=== PATIENT | male | born 1980 | race Hispanic/Latino ===

== ENCOUNTER 2019-07-28 16:45 | Emergency (ER) | payer OTHER ==
[~2019-07-28] VITALS: Ht 172.7 cm; Wt 75.0 kg
[2019-07-28] MEDS ORDERED: DAYT1CAP9 PO (16:53)
[2019-07-28 17:36] LABS: INFLUENZA A AMPLIFICATION NEGATIVE (NEGATIVE); INFLUENZA B AMPLIFICATION POSITIVE (NEGATIVE)
[2019-07-28 18:11] VITALS: BP 125/72
[2019-07-28] MEDS ORDERED: OSELTAMIVIR PHOSPHATE 75 MG CAP (TAMIFLU) PO ONE (18:15)
[2019-07-28] MEDS ORDERED: ONDA4TAB6 PO (18:30)
[2019-07-28] MEDS ORDERED: OSEL75CA PO (18:30)
== END 2019-07-28 18:37 | disposition home or self-care (01) ==
LOC: M ED 16:45
DX: J10.1 Influenza due to other identified influenza virus with other respiratory manifestations (principal); F17.210 Nicotine dependence, cigarettes, uncomplicated

== ENCOUNTER 2020-10-15 12:51 | Day surgery (SDC) | payer OTHER ==
[~2020-10-15] VITALS: Ht 172.7 cm; Wt 70.3 kg
[~2020-10-15 12:51] MED LIST: DAYT1CAP9 PO; LIDOCAINE 2% 100MG/5ML SDV (FOR ANES.) As Ordered ONE; MELA3TAB30 PO; NS 1,000 ML IV ONE; ONDA4TAB6 PO; OSEL75CA PO; PANT40TA29 PO; propofoL 200 MG/20 ML VIAL As Ordered ONE
--- NOTE | 2020-10-15 14:41 | ROOR ---
Patient Name: Ever Guy Procedure Date: 10/15/2020 1:49 PM Date of : 1980 Age: 40 Room: [facility] Gender: Male Note Status: Finalized Procedure: Upper GI endoscopy Indications: Epigastric abdominal pain, Heartburn Providers: Chase Melgar MD Referring MD: CARLOS DE LUNA MD Requesting Provider: Medicines: Monitored Anesthesia Care Complications: No immediate complications. Procedure: Pre-Anesthesia Assessment: - Prior to the procedure, a History and Physical was performed, and patient medications and allergies were reviewed. The patient is competent. The risks and benefits of the procedure and the sedation options and risks were discussed with the patient. All questions were answered and informed consent was obtained. Patient identification and proposed procedure were verified by the physician, the nurse and the anesthesiologist in the procedure room. Mental Status Examination: alert and oriented. Airway Examination: normal oropharyngeal airway and neck mobility. Respiratory Examination: clear to auscultation. CV Examination: normal. Prophylactic Antibiotics: The patient does not require prophylactic antibiotics. Prior Anticoagulants: The patient has taken no previous anticoagulant or antiplatelet agents. ASA Grade Assessment: II - A patient with mild systemic disease. After reviewing the risks and benefits, the patient was deemed in satisfactory condition to undergo the procedure. The anesthesia plan was to use monitored anesthesia care (MAC). Immediately prior to administration of medications, the patient was re-assessed for adequacy to receive sedatives. The heart rate, respiratory rate, oxygen saturations, blood pressure, adequacy of pulmonary ventilation, and response to care were monitored throughout the procedure. The physical status of the patient was re-assessed after the procedure. The Endoscope was introduced through the mouth, and advanced to the second part of duodenum. The upper GI endoscopy was accomplished without difficulty. The patient tolerated the procedure well. Findings: The examined esophagus was normal. The Z-line was regular and was found 40 cm from the incisors. A deformity was found at the pylorus. Biopsies were taken with a cold forceps for histology. Biopsies were taken with a cold forceps for Helicobacter pylori testing. Verification of patient identification for the specimen was done by the physician and nurse using the patient's name, date and medical record number. Estimated blood loss was minimal. A healed ulcer was found at the pylorus. The scar tissue was healthy in appearance. Scattered mild inflammation characterized by erythema, friability and granularity was found in the gastric antrum. The duodenal bulb and second portion of the duodenum were normal. Biopsies for histology were taken with a cold forceps for evaluation of celiac disease. Impression: - Normal esophagus. - Z-line regular, 40 cm from the incisors. - Acquired deformity in the pylorus. Biopsied. - Scar in the pylorus. - Gastritis. - Normal duodenal bulb and second portion of the duodenum. Biopsied. Recommendation: - Patient has a contact number available for emergencies. The signs and symptoms of potential delayed complications were discussed with the patient. Return to normal activities tomorrow. Written discharge instructions were provided to the patient. - High fiber diet. - Continue present medications. - Await pathology results. - Use Protonix (pantoprazole) 40 mg PO twice daily - to be taken in morning (1/2 hour before breakfast) and at bedtime ( atleast 3 hours after last meal) for 8 weeks. - Use sucralfate suspension 1 gram PO QID for 4 weeks. - Follow an antireflux regimen. - Repeat upper endoscopy in 3 months depending on the symptoms and clinical response. - Return to GI clinic in [facility] (address [address], [place], [address]) in 4 -- 6 weeks. Please call GI clinic @ [phone] for apppointment date and time. - Return to primary care physician. Procedure Code(s): --- Professional --- 26893, Esophagogastroduodenoscopy, flexible, transoral; with biopsy, single or multiple Diagnosis Code(s): --- Professional --- K31.89, Other diseases of stomach and duodenum K29.70, Gastritis, unspecified, without bleeding R10.13, Epigastric pain R12, Heartburn CPT copyright 2019 [employer]. All rights reserved. The codes documented in this report are preliminary and upon justice professor review may be revised to meet current compliance requirements. Chase Melgar MD Chase Melgar MD 10/15/2020 2:41:46 PM Electronically signed by Chase Melgar MD Number of Addenda: 0 Note Initiated On: 10/15/2020 1:49 PM Estimated Blood Loss: Estimated blood loss was minimal.
[2020-10-15 14:45] VITALS: BP 108/84
== END 2020-10-15 14:49 | disposition home or self-care (01) ==
LOC: M OPP 12:51
PROVIDERS: ATTEND Internal Medicine Gastroenterology
DX: K31.89 Other diseases of stomach and duodenum (principal); K29.70 Gastritis, unspecified, without bleeding; R12 Heartburn; K21.9 Gastro-esophageal reflux disease without esophagitis; F17.210 Nicotine dependence, cigarettes, uncomplicated; Z80.0 Family history of malignant neoplasm of digestive organs

== ENCOUNTER → 2020-10-22 | Outpatient (CLI) | payer SELFPAY ==
[~2020-10-22] MED LIST changes: -LIDOCAINE 2% 100MG/5ML SDV (FOR ANES.) As Ordered ONE; -NS 1,000 ML IV ONE; -propofoL 200 MG/20 ML VIAL As Ordered ONE
== END ==
LOC: M LABSMTC 14:15
PROVIDERS: ATTEND Pediatrics
DX: Z20.828 Contact with and (suspected) exposure to other viral communicable diseases (principal)

== ENCOUNTER 2021-01-28 15:22 | Emergency (ER) | payer OTHER, SELFPAY ==
[~2021-01-28] VITALS: Ht 172.7 cm; Wt 80.2 kg
[2021-01-28] MEDS ORDERED: ISOVUE-370 76% 100ML VIAL As Ordered ONE (15:45)
--- NOTE | 2021-01-28 15:48 | REP ---
INDICATION: CVA - Nursing interventions must not delay CT COMPARISON: None. TECHNIQUE: Axial noncontrast images from the skull base to the vertex with coronal reformations. This CT examination was performed using the following dose reduction techniques: Automated exposure control, adjustment of mA and/or kv according to the patient's size, and use of iterative reconstruction technique. FINDINGS: The ventricles, sulci, and cisterns are normal in position and appearance. Brunson-white differentiation is maintained. No acute intracranial hemorrhage, mass/mass effect, pathology or trauma/injury. No evidence for acute infarction. No extra-axial fluid collection. Calvarium is intact. Paranasal sinuses and mastoid air cells are clear. IMPRESSION: No evidence for acute intracranial pathology or trauma/injury. <Electronically signed by Ankit Mora > 01/28/21 [id number]
[2021-01-28 15:50] LABS: BASO % 0.4 % (0.0-1.0); EOS # 0.1 10^3/uL (0.0-0.5); EOS % 1.1 % (0.0-3.0); HEMOGLOBIN 14.5 g/dl (13.5-17.5); LYMPH # 2.4 10^3/uL (1.5-5.0); LYMPH % 26.2 % (24.0-44.0); MEAN CORPUSCULAR HEMOGLOBIN 31.3 pg (27.0-33.0); MEAN CORPUSCULAR HGB CONC 33.7 g/dl (32.0-36.5); MEAN CORPUSCULAR VOLUME 92.7 fl (80.0-96.0); MONO # 0.7 10^3/uL (0.0-0.8); MONO % 7.3 % (2.0-8.0); NEUTROPHILS # 5.8 10^3/uL (1.5-8.5); NEUTROPHILS % 64.6 % (36.0-66.0); PLATELET COUNT, AUTOMATED 300 10^3/uL (150-450); RED BLOOD COUNT 4.64 10^6/uL (4.30-6.10)
--- NOTE | 2021-01-28 15:53 | REP ---
INDICATION: CVA. COMPARISON: None. TECHNIQUE: Portable FINDINGS: The technique utilized in obtaining the radiograph has magnified the cardiac silhouette and accentuated the interstitial markings. The superior mediastinal structures are midline. The cardiac silhouette is unremarkable in size, shape, and position. The diaphragmatic surfaces of the lungs are regular, and the costophrenic angles are clear. The pulmonary acosta are clear. The imaged osseous structures are intact. IMPRESSION: There is no acute cardiopulmonary disease. <Electronically signed by Adolfo Lora > 01/28/21 [id number]
[2021-01-28 16:00] LABS: INR 0.92; PROTHROMBIN TIME 12.5 SECONDS (12.5-14.3)
[2021-01-28 16:01] LABS: PARTIAL THROMBOPLASTIN TIME 53.5 SECONDS (24.2-38.5)
--- NOTE | 2021-01-28 16:21 | REP ---
INDICATION: CVA - Nursing interventions must not delay CT. COMPARISON: Comparison is made with today's head CT study.. TECHNIQUE: CT contrast dose: 100 ml of intravenous Isovue 370. CT technique: Helical scanning is acquired. 2 mm axial images are reformatted. Maximal intensity projection and multiplanar re-formation images are generated along with 3-D surface rendered color imaging which is viewed rotational. FINDINGS: There is good opacification of the arterial tree. The distal vertebral arteries are patent bilaterally and codominant. Basilar artery is widely patent. Posterior cerebral and superior cerebellar arteries are intact. The distal internal carotid arteries are unremarkable and symmetric. Anterior middle cerebral arteries are intact. No vessel cutoff, cazares aneurysm, or arteriovenous malformation is seen. Dural sinuses and internal cerebral veins are intact and unremarkable. No evidence of thrombosis. IMPRESSION: Unremarkable CT angiography of the brain. <Electronically signed by Yvan Mayer > 01/28/21 [id number]
--- NOTE | 2021-01-28 16:23 | REP ---
INDICATION: CVA - Nursing interventions must not delay CT COMPARISON: None. TECHNIQUE: Contrast enhancement dose is 100 mL of intravenous Isovue 370. Helical scanning is acquired. 2 mm axial images are re-formatted. Coronal and sagittal MPR images are generated. Coronal and sagittal MIP and oblique MPR images are generated. 3D surface rendered images are generated and viewed rotationally. FINDINGS: There is good opacification of the arterial tree. The visualized aortic arch is unremarkable. Great vessel origins are normal. Vertebral arteries are widely patent bilaterally, right very slightly smaller than left. The common carotid arteries are unremarkable and symmetric. The bifurcations of the carotid arteries are clear bilaterally. There is no evidence of atherosclerotic plaquing. The cervical segments of the internal carotid arteries are normal and symmetric. No evidence to suggest dissection or other arteriopathy. Scattered normal size cervical lymph nodes. Maximum intensity projection, MPR, and color rendered 3D images show no additional abnormality. IMPRESSION: Unremarkable CT angiography of the neck. <Electronically signed by Yvan Mayer > 01/28/21 [id number]
[2021-01-28 16:35] LABS: BLOOD UREA NITROGEN 16 MG/DL (7-18); CALCIUM LEVEL 9.1 MG/DL (8.5-10.1); CARBON DIOXIDE LEVEL 28 MEQ/L (21-32); CHLORIDE LEVEL 107 MEQ/L (98-107); CK-MB VALUE MASS 1.4 NG/ML (<3.6); CPK CREATINE PHOSPHOKINASE 291 U/L (39-308); CREATININE FOR GFR 1.23 MG/DL (0.70-1.30); GLOMERULAR FILTRATION RATE > 60.0 (>60); GLUCOSE, FASTING 88 MG/DL (70-100); MB/CK RELATIVE INDEX 0.48 (< OR =4); POTASSIUM SERUM 4.2 MEQ/L (3.5-5.1); SODIUM LEVEL 139 MEQ/L (136-145); TROPONIN I 0.07 NG/ML (< 0.10)
[2021-01-28] MEDS ORDERED: ASPIRIN 325 MG TAB PO ONE (16:40)
[2021-01-28 17:44] LABS: RSV AMPLIFICATION NEGATIVE (NEGATIVE)
[2021-01-28 17:46] VITALS: BP 128/88
--- NOTE | 2021-01-29 16:44 | ECGEPIP ---
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
== END 2021-01-28 17:48 | disposition short-term general hospital (02) ==
LOC: M ED 15:22
DX: R20.2 Paresthesia of skin (principal); H53.121 Transient visual loss, right eye; K21.9 Gastro-esophageal reflux disease without esophagitis; F17.200 Nicotine dependence, unspecified, uncomplicated
CPT/HCPCS: 36415; 70450; 70496; 70498; 71045; 80047; 80048; 82550; 82553; 84484; 85025; 85610; 85730; 87631; 93005; 93041; 94760; 99285; Q9967

== ENCOUNTER → 2021-02-18 | Outpatient (REF) ==
[~2021-02-18] MED LIST changes: +ELIQ5TAB PO; +LIPI80TA PO; +WARF-21 PO
[2021-02-18 11:35] LABS: INR 3.31; PROTHROMBIN TIME 34.4 SECONDS (12.5-14.3)
== END ==
LOC: M LAB REF 10:34
DX: Z79.01 Long term (current) use of anticoagulants (principal)

== ENCOUNTER → 2021-02-19 | Outpatient (REF) ==
[2021-02-19 12:28] LABS: INR 2.65; PROTHROMBIN TIME 28.6 SECONDS (12.7-14.5)
== END ==
LOC: M LAB REF 11:58
DX: Z79.01 Long term (current) use of anticoagulants (principal)

== ENCOUNTER → 2021-02-19 | Outpatient (CLI) | payer OTHER ==
[2021-02-19 15:08] LABS: CK-MB VALUE MASS < 1.0 NG/ML (<3.6); CPK CREATINE PHOSPHOKINASE 144 U/L (39-308); MB/CK RELATIVE INDEX 0.69 (< OR =4)
== END ==
LOC: M LAB 12:29
PROVIDERS: ATTEND Student in an Organized Health Care Education/Training Program
DX: G72.0 Drug-induced myopathy (principal)

== ENCOUNTER 2021-03-19 13:47 | Emergency (ER) | payer OTHER ==
[~2021-03-19] VITALS: Ht 172.7 cm; Wt 75.0 kg
--- NOTE | 2021-03-19 14:19 | REP ---
INDICATION: CHEST PAIN COMPARISON: 01/28/2021 TECHNIQUE: Portable AP view of the chest FINDINGS: The mediastinum and cardiac silhouette are stable and within normal limits for portable technique. The lung acosta are clear without acute consolidation, effusion, or pneumothorax. Skeletal structures are intact. IMPRESSION: No acute cardiopulmonary process appreciated. <Electronically signed by Ankit Mora > 03/19/21 [id number]
[2021-03-19 14:21] LABS: BASO % 0.4 % (0.0-1.0); EOS # 0.1 10^3/uL (0.0-0.5); EOS % 1.2 % (0.0-3.0); HEMATOCRIT 42.8 % (42.0-52.0); HEMOGLOBIN 14.7 g/dl (13.5-17.5); LYMPH # 1.9 10^3/uL (1.5-5.0); LYMPH % 27.6 % (24.0-44.0); MEAN CORPUSCULAR HEMOGLOBIN 30.9 pg (27.0-33.0); MEAN CORPUSCULAR HGB CONC 34.3 g/dl (32.0-36.5); MEAN CORPUSCULAR VOLUME 89.9 fl (80.0-96.0); MONO # 0.5 10^3/uL (0.0-0.8); MONO % 7.4 % (2.0-8.0); NEUTROPHILS # 4.3 10^3/uL (1.5-8.5); NEUTROPHILS % 63.1 % (36.0-66.0); PLATELET COUNT, AUTOMATED 279 10^3/uL (150-450); RED BLOOD COUNT 4.76 10^6/uL (4.30-6.10); WHITE BLOOD COUNT 6.8 10^3/uL (4.0-10.0)
[2021-03-19 14:55] LABS: ALBUMIN 3.7 GM/DL (3.2-5.2); ALT/SGPT 50 U/L (12-78); BILIRUBIN,DIRECT < 0.1 MG/DL (0.0-0.2); BILIRUBIN,TOTAL 0.2 MG/DL (0.2-1.0); BLOOD UREA NITROGEN 16 MG/DL (7-18); CARBON DIOXIDE LEVEL 24 MEQ/L (21-32); CHLORIDE LEVEL 110 MEQ/L (98-107); CK-MB VALUE MASS < 1.0 NG/ML (<3.6); CPK CREATINE PHOSPHOKINASE 127 U/L (39-308); CREATININE FOR GFR 1.17 MG/DL (0.70-1.30); FREE T4 0.95 NG/DL (0.76-1.46); GLOMERULAR FILTRATION RATE > 60.0 (>60); GLUCOSE, FASTING 140 MG/DL (70-100); MB/CK RELATIVE INDEX 0.79 (< OR =4); POTASSIUM SERUM 3.8 MEQ/L (3.5-5.1); SODIUM LEVEL 140 MEQ/L (136-145); TOTAL PROTEIN 7.1 GM/DL (6.4-8.2); TROPONIN I < 0.02 NG/ML (< 0.10)
[2021-03-19 16:27] LABS: NT-PRO BNP 8 PG/ML (<125)
[2021-03-19] MEDS ORDERED: holter monitor (19:03)
[2021-03-19 19:23] LABS: INR 1.73; PROTHROMBIN TIME 20.6 SECONDS (12.7-14.5)
[2021-03-19 19:26] LABS: CK-MB VALUE MASS < 1.0 NG/ML (<3.6); CPK CREATINE PHOSPHOKINASE 118 U/L (39-308); MB/CK RELATIVE INDEX 0.85 (< OR =4); TROPONIN I < 0.02 NG/ML (< 0.10)
[2021-03-19 19:41] VITALS: BP 138/93
--- NOTE | 2021-03-19 21:24 | ECGEPIP ---
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
== END 2021-03-19 19:48 | disposition home or self-care (01) ==
LOC: EDBD 13:47 → M ED 13:47
DX: R00.2 Palpitations (principal); F17.200 Nicotine dependence, unspecified, uncomplicated; Z79.899 Other long term (current) drug therapy

== ENCOUNTER → 2021-10-20 | Outpatient (REF) ==
[~2021-10-20] MED LIST changes: +ZOLO50TA PO; +holter monitor
== END ==
LOC: M PLAIMG 10:52
PROVIDERS: ATTEND Internal Medicine
DX: R06.02 Shortness of breath (principal); Z95.818 Presence of other cardiac implants and grafts

== ENCOUNTER → 2021-12-31 | Outpatient (CLI) | payer OTHER ==
[2021-12-31 10:48] LABS: BASO % 0.5 % (0.0-1.0); EOS # 0.1 10^3/uL (0.0-0.5); EOS % 1.1 % (0.0-3.0); HEMATOCRIT 45.3 % (42.0-52.0); HEMOGLOBIN 15.2 g/dl (13.5-17.5); LYMPH # 1.9 10^3/uL (1.5-5.0); LYMPH % 31.2 % (24.0-44.0); MEAN CORPUSCULAR HEMOGLOBIN 30.5 pg (27.0-33.0); MEAN CORPUSCULAR HGB CONC 33.6 g/dl (32.0-36.5); MEAN CORPUSCULAR VOLUME 90.8 fl (80.0-96.0); MONO # 0.4 10^3/uL (0.0-0.8); MONO % 6.4 % (2.0-8.0); NEUTROPHILS # 3.8 10^3/uL (1.5-8.5); NEUTROPHILS % 60.5 % (36.0-66.0); PLATELET COUNT, AUTOMATED 295 10^3/uL (150-450); RED BLOOD COUNT 4.99 10^6/uL (4.30-6.10); WHITE BLOOD COUNT 6.2 10^3/uL (4.0-10.0)
[2021-12-31 11:09] LABS: ERYTHROCYTE SEDIMENTATION RATE 5 mm/hr (0-15)
[2021-12-31 15:42] LABS: ALBUMIN 4.3 GM/DL (3.2-5.2); ALT/SGPT 73 U/L (12-78); BILIRUBIN,TOTAL 0.4 MG/DL (0.2-1.0); BLOOD UREA NITROGEN 11 MG/DL (7-18); CARBON DIOXIDE LEVEL 29 MEQ/L (21-32); CHLORIDE LEVEL 107 MEQ/L (98-107); CREATININE FOR GFR 1.28 MG/DL (0.70-1.30); FOLATE 8.2 NG/ML; FREE T4 1.05 NG/DL (0.76-1.46); GLOMERULAR FILTRATION RATE > 60.0 (>60); GLUCOSE, FASTING 82 MG/DL (70-100); POTASSIUM SERUM 4.1 MEQ/L (3.5-5.1); RHEUMATOID FACTOR QUANT < 10.0 IU/ML (<15.0); SODIUM LEVEL 138 MEQ/L (136-145); TOTAL PROTEIN 8.4 GM/DL (6.4-8.2); VITAMIN B12 LEVEL 561 PG/ML
== END ==
LOC: M LAB 10:14
PROVIDERS: ATTEND Psychiatry & Neurology Neurology
DX: I63.9 Cerebral infarction, unspecified (principal); E07.9 Disorder of thyroid, unspecified; E53.9 Vitamin B deficiency, unspecified

== ENCOUNTER → 2021-12-31 | Outpatient (CLI) | payer OTHER ==
[2021-12-31 10:55] LABS: INR 1.34
== END ==
LOC: M LAB 10:16
PROVIDERS: ATTEND Student in an Organized Health Care Education/Training Program
DX: D68.61 Antiphospholipid syndrome (principal)